=== PATIENT | male | born 1945 | race Caucasian/White ===

== ENCOUNTER 2018-01-29 13:29 | Emergency (ER) | payer OTHER ==
--- NOTE | 2018-01-29 13:42 | EDPHY ---
H & P Stated Complaint: CUT FIRST TWO TOES WITH LAWNMOWER THROUGH SHOE - Personal History Current Tetanus Diphtheria and Acellular Pertussis (TDAP): Unsure - Medical/Surgical History Hx Asthma: No Hx Chronic Respiratory Disease: No Hx Diabetes: No Hx Cardiac Disease: Yes Hx Renal Disease: No Hx Cirrhosis: No Hx Alcoholism: No Hx HIV/AIDS: No Hx Splenectomy or Spleen Trauma: No Other PMH: CARDIAC STENT/HTN - Social History Smoking Status: Never smoked Time Seen by Provider: 01/29/18 13:41 Constitutional: Initial Vital Signs Temperature (C) 36.5 C 01/29/18 13:35 Heart Rate 57 L 01/29/18 13:35 Respiratory Rate 18 01/29/18 13:35 Blood Pressure 141/75 H 01/29/18 13:35 O2 Sat (%) 97 01/29/18 13:35 O2 Delivery Mode Room Air Allergies/Adverse Reactions: No Known Allergies Allergy (Unverified 01/29/18 13:34) Home Medications: Medication Instructions Recorded Aspirin 81mg (*) 01/29/18 Atenolol 01/29/18 Losartan Potassium 01/29/18 Medical Decision Making Procedures: I was asked by Dr. Jhonatan Montiel to repair the right great toe laceration Laceration repair. Verbal consent was obtained from the patient. The 2 cm laceration on the right great toe was anesthetized using digital block using 1% lidocaine without epinephrine 0.5% bupivacaine without epinephrine. The wound was irrigated with saline, draped and explored to its base with a gloved finger. There were no deep structures involved. No tendon injury was identified. The wound was repaired with 4 0 Ethilon, 3 sutures. The wound repair was simple. The procedure was performed by myself. (Shelby Saavedra) ED Course/Re-evaluation: CHIEF COMPLAINT: Right foot injury HISTORY OF PRESENT ILLNESS: This patient is a 73 year old male complaining of right foot pain and injury after accidentally running over his foot with an electric lawnmower. A wire from the mower caught around his ankle and dragged the mower back over his foot. The blades cut through his shoe and into his foot over his right great toe and second toe. He denies any further trauma. REVIEW OF SYSTEMS: A 10 point review of systems was performed and is negative with the exception of the elements mentioned in the history of present illness. PHYSICAL EXAM: HR, BP, O2 Sat, RR. Temp noted General Appearance: Alert, well hydrated, appropriate, and non-toxic appearing. Head: Atraumatic without scalp tenderness or obvious injury Eyes: Pupils equal, round, reactive to light and accommodation, EOMI, no trauma , no injection. Throat: Mucus membranes moist. Neck: Supple, nontender, no lymphadenopathy. Respiratory: No retractions, no distress, no wheezes, and no accessory muscle use. Cardiovascular: Regular rate and rhythm, no murmurs, rubs, or gallops. Good capillary refill all extremities. Musculoskeletal: Normal active ROM of all extremities. See skin findings. Neurological: Alert, appropriate, and interactive. The patient has normal DTRs and non-focal cranial nerves, motor, sensory, and cerebellar exam. Skin: Laceration to right lateral great toe. Abrasions to right great and second toe. No evidence of bony injury. No rashes, good turgor, no nodules on palpation. Past medical history: Hypertension. Past surgical history: Cardiac stent placement. Family history:Noncontributory Social history: Lives in [place]. . Employed. DIAGNOSTICS/PROCEDURES/CRITICAL CARE TIME: Laceration repair performed by ADALBERTO Mccain. DIFFERENTIAL DIAGNOSIS: The differential diagnosis for the patient's trauma included but was not limited to bony injury, tendon injury, nail injury, laceration, abrasion, avulsion, amputation. MEDICAL DECISION [id number] y/o male presents with a laceration to his lateral great toe secondary to accidentally running over it with an electric lawnmower. No bony injury appreciated. Patient has full ROM. He requests some medication for pain. The patine is unsure if he has received a tetanus shot in the last ten years so plan to administer TDAP. Administered 2 tabs PO Percocet 5/325 for pain relief. Plan to clean laceration under standard ED protocol and repair. The patient tolerated the procedure well. Plan to discharge home in good condition. Follow up and return precuations discussed. He is comfortable with this plan. (Jhonatan Montiel) - Data Points Medications Given: Discontinued Medications Diphtheria/Tetanus/Acell Pertussis (Boostrix) 0.5 ml IM .ONCE ONE Stop: 01/29/18 13:47 Last Admin: 01/29/18 14:37 Dose: 0.5 ml Oxycodone/Acetaminophen (Percocet 5/325) 2 tab PO EDNOW ONE Stop: 01/29/18 13:54 Last Admin: 01/29/18 14:36 Dose: 1 tab Departure - Departure Disposition: Home, Routine, Self-Care Clinical Impression: Abrasion foot/toe Qualifiers: Encounter type: initial encounter Laterality: right Qualified Code(s): S90.811A - Abrasion, right foot, initial encounter Laceration of right great toe Qualifiers: Encounter type: initial encounter Damage to nail status: without damage Foreign body presence: without foreign body Qualified Code(s): S91.111A - Laceration without foreign body of right great toe without damage to nail, initial encounter Condition: Good Instructions: Care For Your Stitches (ED), Laceration (ED), Abrasion (ED) Additional Instructions: Sutures out in 10 days. Return to the Emergency Department for fever, redness, discharge from wound, increasing pain or other worsening of condition. Referrals: Syeda Gunn MD [Primary Care Provider] - As per Instructions Report Scribed for: Jhonatan Montiel Report Scribed by: Anna Gates Date of Report: 01/29/18 Time of Report: 13:43
[2018-01-29] MEDS ORDERED: TDAP ADULT 0.5 ML INJ (BOOSTRIX) IM ONE (13:46)
[2018-01-29] MEDS ORDERED: OXYCODONE/APAP 5/325 TAB PO ONE ×2 (13:53→15:36)
[2018-01-29 15:36] VITALS: BP 133/84
== END 2018-01-29 15:47 | disposition home or self-care (01) ==
PROC: 0HQMXZZ Repair Right Foot Skin, External Approach (ICD-10-PCS; principal; 2018-01-29)
DX: S91.111A Laceration without foreign body of right great toe without damage to nail, initial encounter (principal); S90.811A Abrasion, right foot, initial encounter; I10 Essential (primary) hypertension; Z95.5 Presence of coronary angioplasty implant and graft; Z79.82 Long term (current) use of aspirin; Z23 Encounter for immunization; W28.XXXA Contact with powered lawn mower, initial encounter

== ENCOUNTER 2018-09-09 15:53 | Inpatient (IN) | payer OTHER | END 2018-09-11 12:20 | disposition home or self-care (01) | LOC: F2W 09-10 11:33 → F2N 18:20 ==